=== PATIENT | female | born 1980 | race Caucasian/White ===

== ENCOUNTER 2020-09-23 06:24 | Emergency (ER) | payer MEDICAID ==
[~2020-09-23] VITALS: Ht 154.9 cm; Wt 83.9 kg
[2020-09-23 06:34] VITALS: Ht 154.9 cm; Wt 83.9 kg
[2020-09-23 11:30] LABS: CALCIUM 8.8 mg/dL (8.5-10.1); CARBON DIOXIDE 23.3 mmol/L (21-32); CHLORIDE SERUM 102 mmol/L (98-107); CREATININE SERUM 0.8 mg/dL (0.6-1.0); GFR1 > 60 mL/min; GLUCOSE SERUM 207 mg/dL (74-106); POTASSIUM SERUM 4.1 mmol/L (3.5-5.1); SODIUM SERUM 136 mmol/L (136-145)
[2020-09-23 11:35] LABS: ALBUMIN 3.4 g/dL (3.4-5.0); ALKALINE PHOSPHATASE 130 U/L (46-116); ALT/SGPT 42 U/L (14-59); AST/SGOT 18 U/L (15-37); BILIRUBIN TOTAL 0.42 mg/dL (0.20-1.00)
[2020-09-23 11:38] LABS: TOTAL PROTEIN, SERUM 8.3 g/dL (6.4-8.2)
[2020-09-23 11:42] LABS: BASOPHIL % 0.2 % (0-2); PLATELET COUNT 281 x10^3mcL (130-400)
[2020-09-23 11:49] LABS: RED CELL DISTRIBUTION WIDTH 18.7 % (11.5-14.5)
[2020-09-23 15:44] VITALS: BP 131/73
== END 2020-09-23 15:45 | disposition home or self-care (01) ==
LOC: ED 06:24
PROVIDERS: Emergency Medicine
DX: N61.1 Abscess of the breast and nipple (principal)
CPT/HCPCS: 76641; J0696; J2270; J2405; J7060